=== PATIENT | female | born 1985 | race Caucasian/White ===

== ENCOUNTER 2016-08-11 13:53 | Emergency (ER) | payer OTHER, MEDICAID ==
[~2016-08-11] VITALS: Ht 160 cm; Wt 69.0 kg
[~2016-08-11 13:53] MED LIST: TOBRA.3%O OD; Z.0.NO CURRENT MEDS
[2016-08-11 14:18] VITALS: BP 131/101; PULSE 82; RESP 16; TEMP 98.7; O2SAT 100
[2016-08-11] MEDS ORDERED: KETOROLAC TROMETHAMINE 60 MG/2 ML (IM) VIAL IM ONE (15:45)
[2016-08-11] MEDS ORDERED: PENI500T PO (16:10)
--- NOTE | 2016-08-11 16:12 | PD ---
HPI Chief Complaint: Hypertension Time Seen by Provider: 15:33 Travel History International Travel<30 days: No Contact w/Intl Traveler<30days: No Traveled to known affect area: No History of Present Illness HPI 31 y/o female presents with right upper dental pain and headache with elevated blood pressure sent from an urgent care. She states that she typically has low blood pressure. She states that she has no other concurrent complaints other than she has been having intermittent cough and congestion for the past couple of months. She states she has to work a lot of hours at her job. She also has had a recent in the family. Quality pain is throbbing. Severity is severe per patient. She denies specific modifying factors other than movement. Duration is couple of days. she denies thunderclap onset PFSH Past Medical History Medical History: Denies Significant Hx Influenza Vaccination: No ?: Not Past Surgical History Section: Yes (X2) Social History Alcohol Use: No Tobacco Use: No Substance Use: No Allergies-Medications (Allergen,Severity, Reaction): Coded Allergies: Codeine (Verified Adverse Reaction, Mild, NAUSEA, 08/11/16) Reported Meds & Prescriptions Reported Meds & Active Scripts Active Penicillin V Potassium 500 Mg Tab 500 Mg PO BID 10 Days Review of Systems Except as stated in HPI: all other systems reviewed are Neg Physical Exam Narrative General: No apparent distress, well appearing ENT: Posterior oropharyngx clear without exudate or erythema, external auditory canals are normal. Bilateral TM clear Neck: Neck is supple, no meningeal signs, trachea is midline Cardiovascular: Regular rate and rhythm Lungs: No increased respiratory effort noted, CTA bilaterally Abdomen: Soft, NT, ND, no rebound or guarding Extremities: No edema, no pain with rom of all joints Neuro: Awake, motor and sensation grossly intact, normal speech Data Data Last Documented VS Vital Signs Date Time Temp Pulse Resp B/P Pulse Ox O2 Delivery O2 Flow Rate FiO2 08/11/16 16:46 134/88 08/11/16 14:18 98.7 82 16 100 Orders Ketorolac Inj (Toradol Inj) (08/11/16 15:45) [facility] Medical Decision Making Medical Screen Exam Complete: Yes Emergency Medical Condition: Yes Medical Record Reviewed: Yes (past history confirmed) Differential Diagnosis Tension, migraine, cluster, dental infection, elevated blood pressure Narrative Course Blood pressure is likely related to pain and stress, will dose with Toradol and reevaluate On recheck patient was resting,Patient denies any new complaints with staff and stated that they felt better. Patient knows that follow up is incumbent on them and to return to the emergency room immediately if new or worsening symptoms develop. agrees to further workup as an outpatient. Diagnosis Primary Impression: Pain, dental Additional Impression: Elevated blood pressure reading Patient Instructions: General Instructions Additional Instructions: return as needed, alternate tylenol and motrin, keep blood pressure log, set up a dentist and primary Med/Other Pt SpecificInfo: Prescription(s) given Scripts Penicillin V Potassium 500 Mg Cud211 Mg PO BID 10 Days Prov:Janet Sanchez MD 08/11/16 Disposition: 01 DISCHARGE HOME Condition: Stable Janet Sanchez MD Aug 11, 2016 16:11
[2016-08-11 16:46] VITALS: BP 134/88
== END 2016-08-11 16:47 | disposition home or self-care (01) ==
LOC: PHED 13:53
DX: K08.89 Other specified disorders of teeth and supporting structures (principal); R03.0 Elevated blood-pressure reading, without diagnosis of hypertension; R05 Cough; R09.89 Other specified symptoms and signs involving the circulatory and respiratory systems; Z88.5 Allergy status to narcotic agent
CPT/HCPCS: 96372; 99283; J1885

== ENCOUNTER 2016-08-14 15:13 | Emergency (ER) | payer OTHER, MEDICAID ==
[~2016-08-14] VITALS: Ht 160 cm; Wt 70.0 kg
[~2016-08-14 15:13] MED LIST changes: +PENI500T PO; -TOBRA.3%O OD; -Z.0.NO CURRENT MEDS
[2016-08-14 15:20] VITALS: BP 152/114; PULSE 89; RESP 18; TEMP 98.7; O2SAT 97
[2016-08-14] MEDS ORDERED: SODIUM CHLOR 0.9% 1000 ML INJ 1,000 ML IV ONE (15:45)
[2016-08-14] MEDS ORDERED: KETOROLAC TROMETHAMINE 30 MG/ML (IVP) VIAL IV PUSH ONE (15:45)
--- NOTE | 2016-08-14 15:58 | PD ---
HPI Chief Complaint: Headache Time Seen by Provider: 15:24 Travel History International Travel<30 days: No Contact w/Intl Traveler<30days: No Traveled to known affect area: No History of Present Illness HPI This is a 31-year-old female who presents to the emergency department with a headache that's been present for 3 days described as a sharp stabbing pain in her right face involving mostly her cheek and her jaw, intermittent, lasting for several seconds to a minute and then subsiding. She says when the pain is very severe and shooting. It nearly drops her to her knees. She says when the pain goes away she feels fine. She denies any associated nausea, vomiting, numbness, weakness, difficulty walking or difficulty talking. She was seen here in the emergency department 2 days ago and was prescribed penicillin for a possible dental infection. She says she's had no dental pain, has had no swelling and has no sensitivity in her mouth. She denies any fevers or chills. She has been under a lot of stress lately as her father recently in her 1-year-old son had a prolonged seizure for which she was hospitalized. [facility] Past Medical History ?: Not Past Surgical History Section: Yes (X2) Social History Alcohol Use: No Tobacco Use: No Substance Use: No Allergies-Medications (Allergen,Severity, Reaction): Coded Allergies: Codeine (Verified Adverse Reaction, Mild, NAUSEA, 08/14/16) Reported Meds & Prescriptions Reported Meds & Active Scripts Active Penicillin V Potassium 500 Mg Tab 500 Mg PO BID 10 Days Review of Systems Except as stated in HPI: all other systems reviewed are Neg Physical Exam Narrative GENERAL:Well appearing, no acute distress SKIN: Focused skin assessment warm and dry. HEAD: Atraumatic. Normocephalic. EYES: Pupils equal and round. No injection or drainage. ENT: Moist mucous membranes NECK: Trachea midline. CARDIOVASCULAR: Regular rate and rhythm. No murmur appreciated. RESPIRATORY: Clear to auscultation. Breath sounds equal bilaterally. GASTROINTESTINAL: Abdomen soft, non-tender, nondistended. MUSCULOSKELETAL: No obvious deformities. NEUROLOGICAL: Awake and alert. No obvious cranial nerve deficits. No dysarthria or aphasia. No upper or lower extremity drift. No upper extremity ataxia. PSYCHIATRIC: Appropriate mood and affect; insight and judgment normal. Data Data Last Documented VS Vital Signs Date Time Temp Pulse Resp B/P Pulse Ox O2 Delivery O2 Flow Rate FiO2 08/14/16 17:05 76 16 135/76 99 Room Air 08/14/16 15:[address] Brain W/O Iv Contrast(Rout) (08/14/16 ) Complete Blood Count With Diff (08/14/16 15:42) Comprehensive Metabolic Panel (08/14/16 15:42) ^ Insert Iv (08/14/16 15:42) Ketorolac Inj (Toradol Inj) (08/14/16 15:45) Sodium Chlor 0.9% 1000 Ml Inj (Ns 1000 M (08/14/16 15:45) Labs Laboratory Tests Test 08/14/16 15:55 White Blood Count 9.6 TH/MM3 Red Blood Count 4.32 MIL/MM3 Hemoglobin 13.2 GM/DL Hematocrit 38.5 % Mean Corpuscular Volume 89.0 FL Mean Corpuscular Hemoglobin 30.5 PG Mean Corpuscular Hemoglobin 34.2 % Concent Red Cell Distribution Width 12.6 % Platelet Count 324 TH/MM3 Mean Platelet Volume 8.1 FL Neutrophils (%) (Auto) 73.1 % Lymphocytes (%) (Auto) 20.3 % Monocytes (%) (Auto) 4.5 % Eosinophils (%) (Auto) 1.2 % Basophils (%) (Auto) 0.9 % Neutrophils # (Auto) 7.1 TH/MM3 Lymphocytes # (Auto) 1.9 TH/MM3 Monocytes # (Auto) 0.4 TH/MM3 Eosinophils # (Auto) 0.1 TH/MM3 Basophils # (Auto) 0.1 TH/MM3 CBC Comment DIFF FINAL Differential Comment Sodium Level 140 MEQ/L Potassium Level 3.7 MEQ/L Chloride Level 104 MEQ/L Carbon Dioxide Level 26.6 MEQ/L Anion Gap 9 MEQ/L Blood Urea Nitrogen 9 MG/DL Creatinine 0.89 MG/DL Estimat Glomerular Filtration 74 ML/MIN Rate Random Glucose 112 MG/DL Calcium Level 8.9 MG/DL Total Bilirubin 0.3 MG/DL Aspartate Amino Transf 9 U/L (AST/SGOT) Alanine Aminotransferase 14 U/L (ALT/SGPT) Alkaline Phosphatase 75 U/L Total Protein 7.8 GM/DL Albumin 3.8 GM/DL MDM Medical Decision Making Medical Screen Exam Complete: Yes Emergency Medical Condition: Yes Interpretation(s) Afebrile, no tachycardia, hypertensive No leukocytosis Electrolytes are reassuring CT of the brain is negative for intracranial hemorrhage Differential Diagnosis Migraine headache, trigeminal neuralgia, dental abscess, dentalgia Narrative Course This is a 31-year-old female who presents to the emergency department with uterine lateral headaches that come on for seconds to minutes and then subside. Her description of her symptoms is classic for trigeminal neuralgia. 2 days ago she was treated for a dental infection but her symptoms have not improved and her symptoms are intermittent and completely subside they're not constant as would be more expected with a dental infection. She has a normal neurologic exam. CT imaging was reassuring. Labs were obtained which were reassuring and she was administered IV Toradol. Ideally we would get an MRI. I think she requires this as an outpatient. I do think it's reasonable to start the patient on carbamazepine but I explained to her that she needs long-term follow- up to stay on this medication and I urged her to follow-up with a primary care physician and with the neurologist. Patient was discharged home. Diagnosis Primary Impression: Trigeminal neuralgia of right side of face Referrals: Elvis Aburto MD Patient Instructions: General Instructions Additional Instructions: If you develop severe worsening headache, persistent vomiting, numbness, weakness, difficulty walking or difficulty talking return to the emergency department immediately. Sometimes in the emergency department we did not identify the cause of headaches. If you continued to have headaches it is very important that you followup with your primary care physician as you may need further testing with an MRI. Med/Other Pt SpecificInfo: Prescription(s) given Scripts Carbamazepine 100 Mg Goba392 Mg CHEW BID 14 Days Ref 0 Prov:Altagracia Pastor MD 08/14/16 Disposition: 01 DISCHARGE HOME Condition: Stable Altagracia Pastor MD Aug 14, 2016 15:58
[2016-08-14 16:09] LABS: AUTOMATED NEUTROPHIL # 7.1 TH/MM3 (1.8-7.7); BASOPHIL # 0.1 TH/MM3 (0-0.2); BASOPHIL % 0.9 % (0.0-2.0); EOSINOPHIL # 0.1 TH/MM3 (0-0.4); EOSINOPHIL % 1.2 % (0.0-4.0); HEMATOCRIT 38.5 % (35.0-46.0); HEMO FLAGS DIFF FINAL; LYMPH % 20.3 % (9.0-44.0); LYMPHOCYTE # 1.9 TH/MM3 (1.0-4.8); MEAN CORPUSCULAR HEMOGLOBIN 30.5 PG (27.0-34.0); MEAN CORPUSCULAR HGB CONC 34.2 % (32.0-36.0); MONO % 4.5 % (0.0-8.0); NEUT % 73.1 % (16.0-70.0); PLATELET COUNT 324 TH/MM3 (150-450); RED BLOOD COUNT 4.32 MIL/MM3 (4.00-5.30); RED CELL DISTRIBUTION WIDTH 12.6 % (11.6-17.2); WHITE BLOOD COUNT 9.6 TH/MM3 (4.0-11.0)
[2016-08-14 16:14] LABS: CHLORIDE 104 MEQ/L (98-107); POTASSIUM 3.7 MEQ/L (3.5-5.1); SODIUM (NA) 140 MEQ/L (136-145)
[2016-08-14 16:17] LABS: BICARBONATE 26.6 MEQ/L (21.0-32.0)
[2016-08-14 16:18] LABS: ANION GAP 9 MEQ/L (5-15); BLOOD UREA NITROGEN 9 MG/DL (7-18)
[2016-08-14 16:21] LABS: ALT (GPT) 14 U/L (10-53); AST (GOT) 9 U/L (15-37); GLOMERULAR FILTRATION RATE 74 ML/MIN (>89)
[2016-08-14 16:22] LABS: TOTAL BILIRUBIN ADULT 0.3 MG/DL (0.2-1.0)
[2016-08-14 16:23] LABS: ALKALINE PHOSPHATASE 75 U/L (45-117)
[2016-08-14 17:05] VITALS: BP 135/76; PULSE 76; RESP 16; O2SAT 99
--- NOTE | 2016-08-14 17:33 | RADHPO ---
EXAM DATE/TIME: 08/14/2016 16:31 [place] COMPARISON: No previous studies available for comparison. INDICATIONS : Right sided cephalgia. RADIATION DOSE: 65.76 CTDIvol (mGy) MEDICAL HISTORY : None SURGICAL HISTORY : None. ENCOUNTER: Initial ACUITY: 1 day PAIN SCALE: 5/10 LOCATION: Right cranial TECHNIQUE: Multiple contiguous axial images were obtained of the head. Using automated exposure control and adj ustment of the mA and/or kV according to patient size, radiation dose was kept as low as reasonably a chievable to obtain optimal diagnostic quality images. FINDINGS: CEREBRUM: The ventricles are normal for age. No evidence of midline shift, mass lesion, hemorrhage or acute in farction. No extra-axial fluid collections are seen. POSTERIOR FOSSA: The cerebellum and brainstem are intact. The 4th ventricle is midline. The cerebellopontine angle i s unremarkable. EXTRACRANIAL: The visualized portion of the orbits is intact. SKULL: The calvaria is intact. No evidence of skull fracture. CONCLUSION: Negative noncontrast CT brain. Francois Fowler MD on August 14, 2016 at 17:31 Board Certified Radiologist. This report was verified electronically.
[2016-08-14] MEDS ORDERED: CARB100C CHEW (17:55)
[2016-08-14 18:00] VITALS: BP 134/76
[2016-08-14] MEDS ORDERED: RANITIDINE HCL 150 MG TAB PO ONE (18:00)
[2016-08-14] MEDS ORDERED: FAMOTIDINE 20 MG TAB PO ONE (18:15)
[2016-08-15] MEDS ORDERED: PROC10TA PO (01:29)
[2016-08-15] MEDS ORDERED: HYDR-3533 PO (01:29)
== END 2016-08-14 18:27 | disposition home or self-care (01) ==
LOC: PHED 15:13
DX: G50.0 Trigeminal neuralgia (principal)
CPT/HCPCS: 70450; 80053; 85025; 96361; 96374; 99284; J1885; J7030

== ENCOUNTER 2016-08-14 23:37 | Emergency (ER) | payer OTHER, MEDICAID ==
[~2016-08-14] VITALS: Ht 160 cm; Wt 70.0 kg
[~2016-08-14 23:37] MED LIST changes: +CARB100C CHEW
[2016-08-14 23:38] VITALS: BP 144/85; PULSE 92; RESP 16; TEMP 98.2; O2SAT 99
[2016-08-15] MEDS ORDERED: SODIUM CHLOR 0.9% 1000 ML INJ 1,000 ML IV ONE (00:21)
[2016-08-15] MEDS ORDERED: diphenhydrAMINE HCL 50 MG/ML VIAL IVP ONE (00:30)
[2016-08-15] MEDS ORDERED: SODIUM CHLORIDE 0.9% FLUSH 10 ML FLUSH IVF PRN (00:30)
[2016-08-15] MEDS ORDERED: PROCHLORPERAZINE INJ 10 MG/2 ML VIAL IVP ONE (00:30)
--- NOTE | 2016-08-15 01:23 | PD ---
HPI Chief Complaint: Headache Time Seen by Provider: 23:59 Travel History International Travel<30 days: No Contact w/Intl Traveler<30days: No Traveled to known affect area: No History of Present Illness HPI 31-year-old female arrives complaining of right face pain and headache. There is a pressure-like quality. It has been intermittent for about 1 day. She's had no fever no nausea no vomiting. She was seen at [place] earlier today and diagnosed with trigeminal neuralgia. She was prescribed carbamazepine and promptly filled the prescription and took one tablet. She reports no improvement arrives here with complaints as listed. She was unable to sleep because of the pain. She denies a past surgical history aside from section 2. She denies a past medical history. She was seen about a week ago for right dentalgia and diagnosed with dental caries and prescribed penicillin which she took as prescribed. [facility] Past Medical History Medical other: Yes (TRIGEMINAL NEURAGIA) ?: Not Past Surgical History Section: Yes (X2) Gynecologic Surgery: Yes (C-SECT X 2) Social History Alcohol Use: No Tobacco Use: No Substance Use: No Allergies-Medications (Allergen,Severity, Reaction): Coded Allergies: Hydrocodone (Verified Allergy, Unknown, 08/15/16) Codeine (Verified Adverse Reaction, Mild, NAUSEA, 08/15/16) Reported Meds & Prescriptions Reported Meds & Active Scripts Active Carbamazepine 100 Mg Chew 100 Mg CHEW BID 14 Days Penicillin V Potassium 500 Mg Tab 500 Mg PO BID 10 Days Review of Systems Except as stated in HPI: all other systems reviewed are Neg General / Constitutional: No: Fever HENT: Positive: Earache Neurologic: Positive: Headache Physical Exam Narrative GENERAL: 31 yo F pleasant moderate distress SKIN: Focused skin assessment warm/dry. HEAD: Atraumatic. Normocephalic. EYES: Pupils equal and round. No scleral icterus. No injection or drainage. ENT: No nasal bleeding or discharge. Mucous membranes pink and moist. Tympanic membranes pink with clearly visualized bony landmarks bilaterally. The dentition is somewhat poor the no focal dental tenderness is present. NECK: Trachea midline. No JVD. CARDIOVASCULAR: Regular rate and rhythm. No murmur appreciated. RESPIRATORY: No accessory muscle use. Clear to auscultation. Breath sounds equal bilaterally. GASTROINTESTINAL: Abdomen soft, non-tender, nondistended. Hepatic and splenic margins not palpable. MUSCULOSKELETAL: No obvious deformities. No clubbing. No cyanosis. No edema. NEUROLOGICAL: Awake and alert. No obvious cranial nerve deficits. Motor grossly within normal limits. Normal speech. PSYCHIATRIC: Appropriate mood and affect; insight and judgment normal. Data Data Last Documented VS Vital Signs Date Time Temp Pulse Resp B/P Pulse Ox O2 Delivery O2 Flow Rate FiO2 08/14/16 23:57 92 16 99 Room Air 08/14/16 23:38 98.2 144/85 VS reviewed Orders Ecg Monitoring (08/15/16 00:21) Iv Access Insert/Monitor (08/15/16 00:21) Oximetry (08/15/16:21) Sodium Chloride 0.9% Flush (Ns Flush) (08/15/16 00:30) Prochlorperazine Inj (Compazine Inj) (08/15/16 00:30) Diphenhydramine Inj (Benadryl Inj) (08/15/16 00:30) Sodium Chlor 0.9% 1000 Ml Inj (Ns 1000 M (08/15/16:21) Tylenol (Acetaminophen) (08/15/16 00:21) Labs Laboratory Tests Test 08/15/16 00:45 Acetaminophen Level 6.3 MCG/ML MDM Medical Decision Making Medical Screen Exam Complete: Yes Emergency Medical Condition: Yes Medical Record Reviewed: Yes Differential Diagnosis Cluster headache, sinusitis, migraine, tension headache, subarachnoid hemorrhage , venous thrombotic disease, trigeminal neuralgia, dentalgia Narrative Course Of note the patient reports taking quite a bit of Tylenol over the past 2 days to help with the pain but it was marginally helpful. The Tylenol level was checked here and is 6.3, well within the normal range. She received reported therapy with an excellent effect. We'll send the patient home with Compazine and a very short course of Lortab. Return precautions discussed. Anterior pain as she was describing with ear involvement nose involvement of face involvement as well as compatible with meningitis subarachnoid hemorrhage or thrombotic disease. Sinus disease is a consideration. Cluster headaches are also considered. Diagnosis Primary Impression: BOX (headache) Qualified Code: R51 - Nonintractable headache, unspecified chronicity pattern , unspecified headache type Referrals: Primary Care Physician 2 days Additional Instructions: You have a choice when it comes to health care, and we are glad that you chose [facility]. Hopefully, we have met your expectations on today's visit. You are welcome to return to [facility] at any time, as we are committed to meeting the health care needs of our community. Med/Other Pt SpecificInfo: Prescription(s) given Scripts Hydrocodone-Acetaminophen (Lortab)5-325 Mg Tab1-2 Tab PO Q6H PRN (PAIN SCALE 6 TO 10) #10 TAB Ref 0 Prov:Jose Casas MD 08/15/16 Prochlorperazine Maleate 10 Mg Tab10 Mg PO Q6H PRN (HEADACHE) #10 TAB Ref 0 Prov:Jose Casas MD 08/15/16 Disposition: DISCHARGE HOME Condition: Stable Jose Casas MD Aug 15, 2016 01:23
[2016-08-15] MEDS ORDERED: HYDR-3533 PO (01:29)
[2016-08-15] MEDS ORDERED: PROC10TA PO (01:29)
== END 2016-08-15 02:06 | disposition home or self-care (01) ==
LOC: NEPC 23:37
DX: R51 Headache (principal); Z86.69 Personal history of other diseases of the nervous system and sense organs
CPT/HCPCS: 80307; 96374; 96375; 99283; J0780; J1200; J7030